=== PATIENT | male | born 1960 | race Caucasian/White ===

== ENCOUNTER 2018-06-20 23:13 | Emergency (ER) | payer OTHER ==
[~2018-06-20] VITALS: Ht 172.7 cm; Wt 79.4 kg
[2018-06-20 23:15] VITALS: BP_SYST 125
[2018-06-21] MEDS ORDERED: methylPREDNISolone SOD SUCC/PF 62.5 MG/ML VIAL IM ONE (01:15)
[2018-06-21] MEDS ORDERED: AMOXICILLIN/CLAVULANATE POTASSIUM 875 MG TABLET PO ONE (01:15)
[2018-06-21 01:48] VITALS: BP_SYST 128
== END 2018-06-21 01:48 | disposition home or self-care (01) ==
LOC: SED 23:13
DX: K12.2 Cellulitis and abscess of mouth (principal); R09.89 Other specified symptoms and signs involving the circulatory and respiratory systems
CPT/HCPCS: 71045; 96372; 99283; J2930